=== PATIENT | male | born 1970 | race Hispanic/Latino ===

== ENCOUNTER 2022-02-22 22:11 | Inpatient (IN) | payer OTHER ==
[~2022-02-22] VITALS: Ht 175.3 cm; Wt 64.5 kg
[2022-02-22] MEDS ORDERED: 0.9%NACL 1000ML 1,000 ML IV ONE (23:00)
[2022-02-22] MEDS ORDERED: ACETAMINOPHEN 500 MG TABLET PO ONE (23:00)
[2022-02-22 23:09] LABS: BASOPHILS % (AUTO) 0.2 % (0.0-5.0); HEMATOCRIT 29.2 % (42-54); MEAN CORPUSCULAR HEMOGLOBIN 26.5 pg (27.0-33.0); MEAN CORPUSCULAR HGB CONC 32.2 g/dL (32.0-36.0); MEAN CORPUSCULAR VOLUME 82.3 fL (79-99); MONOCYTES % (AUTO) 7.6 % (3.0-13.0); NEUTROPHILS % (AUTO) 87.5 % (40.0-77.0); PLATELET COUNT (AUTO) 461 K/uL (130-400); RED BLOOD CELL COUNT(AUTO) 3.55 MIL/uL (4.50-6.20); RED CELL DISTRIBUTION WIDTH 13.5 % (11.0-15.5); WHITE BLOOD COUNT (AUTO) 17.7 K/uL (4.8-10.8)
[2022-02-22 23:10] LABS: BILIRUBIN,URINE Small (NEGATIVE); COLOR,URINE Dark Yellow (YELLOW); GLUCOSE, URINE (UA) Negative (NEGATIVE); KETONES,URINE Trace mg/dL (NEGATIVE); LEUKOCYTE ESTERASE ,URINE Large (NEGATIVE); NITRATE,URINE Positive (NEGATIVE); OCCULT BLOOD,URINE Nonhemolyzed Trace (NEGATIVE); PROTEIN,URINE POS 2+ mg/dL (NEGATIVE)
[2022-02-22 23:11] LABS: APPEARANCE,URINE CLOUDY (CLEAR)
[2022-02-22 23:18] LABS: BACTERIA,URINE Few /HPF (None Seen); SQUAMOUS EPITHELIAL CELL,UR Rare /HPF (0-2); WBC,URINE 51-100 /HPF (0-1)
[2022-02-22] MEDS ORDERED: ZOSYN 3.375GM+NS 50ML 50 ML ONE (23:22)
[2022-02-22] MEDS ORDERED: ZOSYN 3.375GM +NS 50ML IV SCH (23:30)
[2022-02-22 23:32] LABS: BILIRUBIN,TOTAL 0.7 mg/dL (0.2-1.0); CREATININE 1.2 mg/dL (0.5-1.5); MAGNESIUM 1.9 mg/dL (1.80-2.40); POTASSIUM 3.1 mmol/L (3.5-5.1); TOTAL PROTEIN, SERUM 6.6 g/dL (6.0-8.3)
[2022-02-22] MEDS ORDERED: ONDANSETRON 4MG INJ ONE (23:59)
[2022-02-23] MEDS ORDERED: IOHEXOL 350 MG/ML 100ML INFUS..BTL IV ONE
[2022-02-23] MEDS ORDERED: MORPHINE 4 MG SYG ONE
[2022-02-23] MEDS ORDERED: MORPHINE 4 MG SYG IVP ONE (00:30)
[2022-02-23] MEDS ORDERED: ONDANSETRON 4MG INJ IVP ONE (00:30)
[2022-02-23] MEDS ORDERED: ACETAMINOPHEN WITH CODEINE 1 TAB TAB PO PRN (01:30)
[2022-02-23] MEDS ORDERED: ACETAMINOPHEN 325 MG TAB PO PRN (01:30)
[2022-02-23] MEDS: LACTATED RINGERS 1000ML 1,000 ML IV SCH ×3 (01:47→20:50)
[2022-02-23 04:00] VITALS: BP 147/87
[2022-02-23] MEDS: ZOSYN 3.375GM+NS 50ML 50 ML IV SCH ×3 (04:23→20:50)
[2022-02-23] MEDS: ACETAMINOPHEN WITH CODEINE 1 TAB TAB PO PRN ×3 (04:23→20:50)
[2022-02-23] MEDS ORDERED: [UNRECOGNIZED DRUG - OTHER] (04:46)
[2022-02-23] MEDS ORDERED: KETO10 PO (04:46)
[2022-02-23] MEDS ORDERED: [UNRECOGNIZED DRUG - OTHER] (04:46)
[2022-02-23] MEDS ORDERED: DEXTROSE 50%-WATER 50 ML DISP.SYRIN IV PRN (05:00)
[2022-02-23] MEDS ORDERED: GLUCAGON 1MG KIT 1 MG ML IM PRN (05:00)
[2022-02-23] MEDS ORDERED: POTASSIUM CHLORIDE 10MEQ SR TAB PO SCH (05:00)
[2022-02-23 05:17] LABS: BASOPHILS % (AUTO) 0.2 % (0.0-5.0); HEMATOCRIT 28.4 % (42-54); LYMPHOCYTES % (AUTO) 5.8 % (21.0-51.0); MEAN CORPUSCULAR HEMOGLOBIN 25.5 pg (27.0-33.0); MEAN CORPUSCULAR HGB CONC 30.3 g/dL (32.0-36.0); MEAN CORPUSCULAR VOLUME 84.3 fL (79-99); NEUTROPHILS % (AUTO) 85.3 % (40.0-77.0); PLATELET COUNT (AUTO) 458 K/uL (130-400); RED BLOOD CELL COUNT(AUTO) 3.37 MIL/uL (4.50-6.20); RED CELL DISTRIBUTION WIDTH 13.5 % (11.0-15.5); WHITE BLOOD COUNT (AUTO) 17.1 K/uL (4.8-10.8)
[2022-02-23 05:38] LABS: CREATININE 1.2 mg/dL (0.5-1.5); MAGNESIUM 1.8 mg/dL (1.80-2.40); PHOSPHORUS 3.7 mg/dL (2.5-4.9)
[2022-02-23 05:49] LABS: POTASSIUM 2.9 mmol/L (3.5-5.1)
[2022-02-23] MEDS: INSULIN HUMULIN R 100 UNIT/ML 3ML SQ SCH ×4 (06:08→20:50)
[2022-02-23] MEDS ORDERED: POTASSIUM CHLORIDE 10% ELIXIR 20 MEQ/15 ML UDCUP PO PRN (07:00)
[2022-02-23] MEDS ORDERED: POTASSIUM CHLORIDE 20MEQ/100ML 100 ML IV PRN (07:00)
[2022-02-23] MEDS ORDERED: LIDOCAINE HCL-MPF 1% 2ML VIAL IV PRN (07:00)
[2022-02-23 08:00] VITALS: BP 157/86
[2022-02-23] MEDS: KCL 20 MEQ ERTAB PO PRN ×5 (11:05→20:49)
[2022-02-23 12:00] VITALS: BP 116/71
[2022-02-23 16:00] VITALS: BP 104/63
[2022-02-23 19:00] VITALS: BP 125/67
[2022-02-23] MEDS: ONDANSETRON 4MG INJ IV PRN (21:30)
[2022-02-24] VITALS: BP 107/69
[2022-02-24] MEDS: KETOROLAC 15MG/ML VIAL (15MG/ML) IV PRN (01:51)
[2022-02-24 04:00] VITALS: BP 103/57
[2022-02-24 04:22] LABS: HEMATOCRIT 23.3 % (42-54); MEAN CORPUSCULAR HEMOGLOBIN 26.1 pg (27.0-33.0); MEAN CORPUSCULAR HGB CONC 31.8 g/dL (32.0-36.0); MEAN CORPUSCULAR VOLUME 82.3 fL (79-99); RED BLOOD CELL COUNT(AUTO) 2.83 MIL/uL (4.50-6.20); RED CELL DISTRIBUTION WIDTH 13.8 % (11.0-15.5); WHITE BLOOD COUNT (AUTO) 17.7 K/uL (4.8-10.8)
[2022-02-24 04:38] LABS: CREATININE 1.1 mg/dL (0.5-1.5); POTASSIUM 3.8 mmol/L (3.5-5.1)
[2022-02-24] MEDS: ZOSYN 3.375GM+NS 50ML 50 ML IV SCH (04:53)
[2022-02-24] MEDS: INSULIN HUMULIN R 100 UNIT/ML 3ML SQ SCH ×4 (06:19→20:24)
[2022-02-24 08:00] VITALS: BP 119/73
[2022-02-24] MEDS: ONDANSETRON 4MG INJ IV PRN (08:44)
[2022-02-24] MEDS ORDERED: LEVOFLOXACIN 750 MG/D5W 150 ML 150 ML IV SCH (09:00)
[2022-02-24 11:41] VITALS: BP 111/70
[2022-02-24 15:49] VITALS: BP 120/69
[2022-02-24] MEDS ORDERED: MAGNESIUM 2GM PREMIX 50ML 50 ML IV PRN (18:30)
[2022-02-24] MEDS ORDERED: FAMOTIDINE 20MG TAB ONE (19:21)
[2022-02-24] MEDS: FAMOTIDINE 20MG TAB PO SCH (19:43)
[2022-02-24] MEDS: ACETAMINOPHEN WITH CODEINE 1 TAB TAB PO PRN (19:43)
[2022-02-24 20:29] VITALS: BP 128/74
[2022-02-25 00:20] VITALS: BP 114/62
[2022-02-25] MEDS: KETOROLAC 15MG/ML VIAL (15MG/ML) IV PRN (03:56)
[2022-02-25] MEDS: ACETAMINOPHEN 325 MG TAB PO PRN ×2 (03:56→14:10)
[2022-02-25 04:23] VITALS: BP 125/73
[2022-02-25] MEDS: INSULIN HUMULIN R 100 UNIT/ML 3ML SQ SCH ×3 (05:07→11:30)
[2022-02-25 06:53] LABS: BASOPHILS % (AUTO) 0.2 % (0.0-5.0); EOSINOPHILS % (AUTO) 0.1 % (0.0-8.0); HEMATOCRIT 25.1 % (42-54); LYMPHOCYTES % (AUTO) 5.3 % (21.0-51.0); MEAN CORPUSCULAR HEMOGLOBIN 25.1 pg (27.0-33.0); MEAN CORPUSCULAR HGB CONC 30.3 g/dL (32.0-36.0); MEAN CORPUSCULAR VOLUME 82.8 fL (79-99); MONOCYTES % (AUTO) 7.8 % (3.0-13.0); NEUTROPHILS % (AUTO) 85.7 % (40.0-77.0); PLATELET COUNT (AUTO) 402 K/uL (130-400); RED BLOOD CELL COUNT(AUTO) 3.03 MIL/uL (4.50-6.20); WHITE BLOOD COUNT (AUTO) 16.2 K/uL (4.8-10.8)
[2022-02-25 07:01] LABS: CREATININE 1.2 mg/dL (0.5-1.5); POTASSIUM 3.9 mmol/L (3.5-5.1)
[2022-02-25 08:00] VITALS: BP 108/71
[2022-02-25] MEDS: FAMOTIDINE 20MG TAB PO SCH (08:55)
[2022-02-25] MEDS ORDERED: LEVOFLOXACIN 750 MG TABLET PO SCH (09:00)
[2022-02-25] MEDS ORDERED: ACETAMINOPHEN 500 MG TABLET PO ONE (09:30)
[2022-02-25 12:00] VITALS: BP 136/72
[2022-02-25 15:42] VITALS: BP 108/58
== END 2022-02-25 17:23 | disposition home or self-care (01) | DRG 872 ==
LOC: EDH 22:11 → EDHIP 22:12 → UNDOADMIN 02-23 01:20 → 4CH 02-23 04:24
PROVIDERS: ADMIT Hospitalist; ATTEND Hospitalist
DX: A41.9 Sepsis, unspecified organism (principal); N39.0 Urinary tract infection, site not specified; Z83.3 Family history of diabetes mellitus; E11.9 Type 2 diabetes mellitus without complications; F19.10 Other psychoactive substance abuse, uncomplicated; G89.29 Other chronic pain; J44.9 Chronic obstructive pulmonary disease, unspecified
CPT/HCPCS: 36415; 71260; 73620; 74177; 80048; 80053; 81001; 82330; 82550; 82948; 83605; 83735; 84100; 84145; 84484; 85025; 85027; 87040; 87077; 87088; 87186; 93005; 99291; G0378; J1815; J1885; J1956; J2270; J2405; J2543; J3475; J3480; J3490; J7120; Q9967